=== PATIENT | female | born 1935 | race Caucasian/White ===

== ENCOUNTER 2016-10-18 16:27 | Emergency (ER) | payer MEDICARE, OTHER ==
[2016-10-18] MEDS ORDERED: SODIUM CHLORIDE 0.9% (FLUSH) 10 ML SYG IV PRN (17:37)
[2016-10-18] MEDS ORDERED: NITROGLYCERIN 0.4 MG 25 EA TAB SL ONE (17:37)
[2016-10-18] MEDS ORDERED: ONDANSETRON INJ 4 MG/2 ML VIAL IV ONE (17:37)
[2016-10-18] MEDS ORDERED: ASPIRIN TABLET 325 MG TAB PO ONE (17:37)
--- NOTE | 2016-10-18 17:37 | ED.PDOC ---
History of Present Illness - General Chief Complaint: Chest Pain/WA Stated Complaint: CHEST PAIN Time Seen by Provider: 10/18/16 17:36 Source: patient, RN notes reviewed, Vital Signs reviewed Exam Limitations: no limitations Additional Information: She stated that she had pressure type chestthenpain 3 days ago non radiating lasting for about 10-15 minutes then went away,denies diaphoresis,sob ,nausea/ vomitingthen this afternoon she had same episode while reading her books at home then came to er to get checked and stated was chest pain free on her arrival at er. - History of Present Illness Timing/Duration: other - 3 days ago and this afternoon Location: central Activities at Onset: none Prior Chest Pain/Cardiac Workup: no prior chest pain Improving Factors: nothing Worsening Factors: nothing Nitro Today/Relief: no nitro taken today, provided by ED Aspirin Treatment Today: provided by ED Associated Symptoms: denies symptoms Allergies/Adverse Reactions: Allergies NO KNOWN ALLERGY Allergy (Verified 07/24/16 10:03) Home Medications: Ambulatory Orders Amitriptyline HCl 1 ea PO PRN 07/24/16 Cetirizine HCl [Zyrtec] 1 ea PO DAILY 07/24/16 Metoprolol Succinate [Toprol XL] 50 mg PO DAILY 07/24/16 Raloxifene HCl [Raloxifene Hydrochloride] 60 mg PO BEDTIME 07/24/16 Aspirin [Aspirin Adult Low Dose] 81 mg PO DAILY #60 tab 10/18/16 Nitroglycerin 0.4 mg Tab [Nitrostat] 0 ea SL .Q5M PRN #1 bottle 10/18/16 Review of Systems - Review of Systems Constitutional: States: no symptoms reported EENTM: States: no symptoms reported Respiratory: States: no symptoms reported Cardiology: States: see HPI Gastrointestinal/Abdominal: States: no symptoms reported Genitourinary: States: no symptoms reported Musculoskeletal: States: no symptoms reported Skin: States: no symptoms reported Neurological: States: anxiety Endocrine: States: no symptoms reported Hematologic/Lymphatic: States: no symptoms reported Past Medical History (General) - Patient Medical History Hx Stroke: No Hx Congestive Heart Failure: No Hx Pacemaker: No Hx Hypertension: Yes Hx Diabetes: No Hx Cancer: No Hx Hepatitis C: No Surgical History: other - nasal polyp,d&c, - Vaccination History Hx Tetanus, Diphtheria Vaccination: No Hx Influenza Vaccination: Yes Hx Pneumococcal Vaccination: No - Social History Hx Tobacco Use: No Hx Chewing Tobacco Use: No Hx Alcohol Use: Yes - Occasional Hx Substance Use: No Hx Substance Use Treatment: No Hx Depression: No Hx Physical Abuse: No Hx Emotional Abuse: No Hx Suspected Abuse: No - Activities of Daily Living Patient Lives Alone: Yes - home - Female History Patient : No Family Medical History - Family History Grandparents Family History: Unknown Hx Family Diabetes: Yes Hx Family Cancer: Yes - gallstone Physical Exam - Physical Exam General Appearance: Alert, No apparent distress Eyes, Ears, Nose, Throat Exam: PERRL/EOMI, normal ENT inspection, TMs normal Neck: non-tender, full range of motion, supple, normal inspection Respiratory: chest non-tender, normal breath sounds, no respiratory distress, no accessory muscle use, rhonchi - mild Cardiovascular/Chest: normal peripheral pulses, regular rate, rhythm, no edema, no gallop, no JVD, no murmur Peripheral Pulses: radial,right: 2+, radial,left: 2+ Gastrointestinal/Abdominal: normal bowel sounds, non tender, soft, no organomegaly, no pulsatile mass Extremity: normal range of motion, normal inspection Neurologic: no motor/sensory deficits, alert, normal mood/affect Skin Exam: normal color, warm/dry Progress - Progress Progress: 10/18/16 19:08 patient stated no longer having chest discomfort or tightness since she was here in er;Recommended hospitaliztion but declined wants to go home. - Results/Orders Results/Orders: 10/18/16 17:37 Sodium Chloride 0.9% (Flush) [Saline Flush Syringe] 10 ml IV PRN PRN 10/18/16 17:38 IV Care:Saline Lock per Protoc QSHIFT Telemetry .ONCE EKG Assessment ONCE EKG Stat Pulse Ox Stat Pulse Oximetry Assessment DAILY 10/18/16 17:53 B-TYPE NATRIURETIC PEPTIDE/BNP Stat CARDIAC PANEL,ER Stat Laboratory Results WBC 5.6 K/mm3 (4.8-10.8) 10/18/16 17:53 RBC 4.22 M/mm3 (4.20-5.40) 10/18/16 17:53 Hgb 12.1 gm/dL (12.0-16.0) 10/18/16 17:53 Hct 36.6 % (36.0-47.0) 10/18/16 17:53 MCV 86.5 fl (81.0-99.0) 10/18/16 17:53 MCH 28.7 pg (27.0-31.0) 10/18/16 17:53 MCHC 33.2 g/dL (33.0-37.0) 10/18/16 17:53 RDW 13.0 % (11.5-14.5) 10/18/16 17:53 Plt Count 216 K/mm3 (130-400) 10/18/16 17:53 MPV 7.3 fl (7.40-10.4) L 10/18/16 17:53 Absolute Neuts (auto) 3.10 K/uL (1.8-6.8) 10/18/16 17:53 Absolute Lymphs (auto) 1.40 K/uL (1.0-3.4) 10/18/16 17:53 Absolute Monos (auto) 0.70 K/uL (0.2-0.8) 10/18/16 17:53 Absolute Eos (auto) 0.30 K/uL (0.0-0.4) 10/18/16 17:53 Absolute Basos (auto) 0.00 K/uL (0.0-0.1) 10/18/16 17:53 Neutrophils % 55.8 % (42.0-78.0) 10/18/16 17:53 Lymphocytes % 25.7 % (20.0-50.0) 10/18/16 17:53 Monocytes % 11.9 % (2.0-9.0) H 10/18/16 17:53 Eosinophils % 6.0 % (1.0-5.0) H 10/18/16 17:53 Basophils % 0.6 % (0.0-2.0) 10/18/16 17:53 PT 11.3 SECONDS (9.4-12.5) 10/18/16 17:53 INR 1.000 10/18/16 17:53 PTT (SP) 28.2 SECONDS (25.1-36.5) 10/18/16 17:53 Sodium 132 mmol/L (135-145) L 10/18/16 17:53 Potassium 4.1 mmol/L (3.6-5.0) 10/18/16 17:53 Chloride 96 mmol/L (101-111) L 10/18/16 17:53 Carbon Dioxide 28 mmol/L (21-31) 10/18/16 17:53 Anion Gap 12.1 (12-18) 10/18/16 17:53 BUN 22 mg/dL (7-18) H 10/18/16 17:53 Creatinine 0.86 mg/dL (0.6-1.3) 10/18/16 17:53 BUN/Creatinine Ratio 25.6 (10-20) H 10/18/16 17:53 Random Glucose 78 mg/dL (70-105) 10/18/16 17:53 Serum Osmolality 266.7 mOsm/L (275-295) L 10/18/16 17:53 Calcium 9.1 mg/dL (8.4-10.2) 10/18/16 17:53 Magnesium 1.9 mg/dL (1.8-2.5) 10/18/16 17:53 Creatine Kinase 80 IU/L (26-140) 10/18/16 17:53 CK-MB (CK-2) 2.4 ng/mL (0.0-4.4) 10/18/16 17:53 CK-MB (CK-2) % Not Reportable 10/18/16 17:53 Troponin I < 0.02 ng/mL (0.01-0.05) 10/18/16 17:53 - EKG/XRAY/CT EKG: Sinus, nonspecific ST T wave Chg Comments: heart rate-71 XRAY: chest - no acute abnormality Departure - Departure Clinical Impression: Chest discomfort Time of Disposition: 19:10 Disposition: Discharge to Home or Self Care Condition: Good Departure Forms: ED Discharge - Pt. Copy, Patient Portal Self Enrollment Instructions: DI for Atypical Chest Pain, DI for Chest Pain Prescriptions: Aspirin [Aspirin Adult Low Dose] 81 mg PO DAILY #60 tab Nitroglycerin 0.4 mg Tab [Nitrostat] 0 ea SL .Q5M PRN #1 bottle PRN Reason: Chest Pain Home Medications: Ambulatory Orders Amitriptyline HCl 1 ea PO PRN 07/24/16 Cetirizine HCl [Zyrtec] 1 ea PO DAILY 07/24/16 Metoprolol Succinate [Toprol XL] 50 mg PO DAILY 10/08/16 Raloxifene HCl [Raloxifene Hydrochloride] 60 mg PO BEDTIME 07/24/16 Aspirin [Aspirin Adult Low Dose] 81 mg PO DAILY #60 tab 10/18/16 Nitroglycerin 0.4 mg Tab [Nitrostat] 0 ea SL .Q5M PRN #1 bottle 10/18/16 Additional Instructions: RETURN TO ER NEEDED IF SYMPTOMS WORSENS Comments: FOLLOW UP WITH PRIMARY MD 10/19/2016 patient to call FOR APPOINTMENT
--- NOTE | 2016-10-18 18:26 | RAD ---
EXAM DESCRIPTION: XR CHEST 1 VIEW CLINICAL HISTORY: pain COMPARISON: None. FINDINGS: Cardiac silhouette is within normal limits. EKG leads project over the chest. Aorta is tortuous. There is atherosclerosis. There is no focal parenchymal or pleural disease. There is no acute osseous process visualized. IMPRESSION: No evidence of acute cardiopulmonary disease. Electronically signed by: Darwin Brown 10/18/2016 18:25
[2016-10-18 18:48] VITALS: BP 168/91; TEMP 98; O2SAT 96
== END 2016-10-18 20:01 | disposition home or self-care (01) ==
LOC: ER 16:27
DX: R07.89 Other chest pain (principal); I10 Essential (primary) hypertension; Z79.82 Long term (current) use of aspirin; Z79.899 Other long term (current) drug therapy; Z83.3 Family history of diabetes mellitus

== ENCOUNTER → 2016-12-07 | Outpatient (CLI) | payer MEDICARE, OTHER | END | disposition home or self-care (01) | LOC: GMAH 10:28 | PROVIDERS: ATTEND Family Medicine | DX: I10 Essential (primary) hypertension (principal) ==

== ENCOUNTER → 2017-11-16 | Outpatient (CLI) | payer MEDICARE, OTHER ==
--- NOTE | 2017-11-16 20:29 | MRI ---
EXAM DESCRIPTION: Shoulder,Right: MRI. CLINICAL HISTORY: PAIN IN UPPER RIGHT ARM COMPARISON: None. TECHNIQUE: Multiplanar, high-field MRI, multiple sequences, without contrast: Right shoulder. FINDINGS: Full-thickness tear of the supraspinatus tendon with medial retraction just lateral to the superior labrum and glenoid rim. Remnant of tissue attached to the anterior greater tuberosity. Remnant of the posterior fibers appears to be connected to the anterior infraspinatus tendon. Effusion and debris in the subacromial-subdeltoid bursa. Superior migration of the humeral head within 1 cm of the undersurface of the acromion process. Article erosions on the posterior tuberosity larger than the anterior tuberosity. Edema in the distal infraspinatus tendon. Minimal fluid on the undersurface of the tendon insertion. Grade 2 muscle atrophy in the supraspinatus. Less atrophy in the other rotator cuff muscles. Minimal fluid in the musculotendinous junction of the subscapularis; teres minor tendon intact. Enlargement of the AC joint capsule with widening of the joint space and effusion. Subchondral edema in the facets. Mild downsloping of the lateral acromion and type II curvature resulting in flattening of the coracoacromial arch. Coracoid ligaments are intact. Large effusion in the subcoracoid bursa with fluid extending posterior to the subscapularis. Glenohumeral joint effusion. No loose bodies. Chondromalacia in the joint space. No subchondral edema. Posterior origination of the bicipital labral anchor and the long head biceps tendon. Edema in the superior glenohumeral ligament. Fluid in the posterior aspect of the superior labrum. IMPRESSION: 1. Complete tear of most of the fibers of the supraspinatus tendon with medial retraction. Small remnant attached to the anterior tuberosity. Posterior fibers attached to the anterior infraspinatus tendon. Minimal muscle atrophy. Effusion and debris in the subacromion subdeltoid bursa. 2. Tendinopathy and partial-thickness undersurface insertion tear of the infraspinatus tendon. Tendinopathy of the subscapularis tendon. No significant muscle atrophy. 3. Moderate arthropathy of the AC joint. Morphology of the acromion process is flattening the lateral coracoacromial arch. Effusion in the subcoracoid bursa. 4. Possible tear posterior aspect of the superior labrum. Sprain versus partial tear of the superior glenohumeral ligament. Chondromalacia in the glenohumeral joint with large effusion. Electronically signed by: Elliot Bean MD 11/16/2017 8:28 PM [facility] [[email or web address]]
== END ==
LOC: MRI 11:04
PROVIDERS: ATTEND Family Medicine
DX: M75.121 Complete rotator cuff tear or rupture of right shoulder, not specified as traumatic (principal); M12.811 Other specific arthropathies, not elsewhere classified, right shoulder

== ENCOUNTER → 2017-12-19 | Outpatient (CLI) | payer OTHER | LOC: GMAH 14:50 | PROVIDERS: ATTEND Family Medicine | DX: I10 Essential (primary) hypertension (principal) ==

== ENCOUNTER → 2018-01-06 | Outpatient (CLI) | payer OTHER | LOC: GMAM 15:39 | PROVIDERS: ATTEND Family Medicine | DX: R19.7 Diarrhea, unspecified (principal) ==

== ENCOUNTER → 2018-01-09 | Outpatient (CLI) | payer OTHER ==
--- NOTE | 2018-01-09 13:50 | CT ---
EXAM DESCRIPTION: Abdomen/Pelvis w/o Contrast CLINICAL HISTORY: 82 years, Female, [place] COMPARISON: None. TECHNIQUE: CT of the abdomen and pelvis is performed according to our non contrast protocol. Coronal and sagittal reformatted images are evaluated. FINDINGS: The lung bases are clear. Heart size is normal. Liver, spleen, and pancreas are unremarkable. No right renal stones or mass. Question mild edema around the right kidney. Correlate with urinalysis. No obstructive uropathy. The left kidney is unremarkable. No left renal stones or hydronephrosis. There is no lymphadenopathy, inflammation, or free fluid observed. In the pelvis, bladder and distal ureters are negative for stones. Uterus is normal in size. No ovarian enlargement, adnexal mass or cyst. No inflammation around the cecum or terminal ileum. Appendicoliths are seen in the appendix. No periappendiceal inflammation. Sigmoid diverticulosis is seen without changes of acute diverticulitis. Degenerative changes are seen in the lower lumbar facets and SI joints. IMPRESSION: No acute upper abdominal process. No acute pelvic process. This exam was performed according to our departmental dose-optimization program, which includes automated exposure control, adjustment of the mA and/or kV according to patient size and/or use of iterative reconstruction technique. Electronically signed by: Thom Joiner MD 01/09/2018 1:48 PM CDT
== END ==
LOC: CT 09:08
PROVIDERS: ATTEND Family Medicine
DX: R19.7 Diarrhea, unspecified (principal)

== ENCOUNTER → 2019-07-20 | Outpatient (CLI) | payer OTHER | LOC: GMA MATASK 11:32 | PROVIDERS: ATTEND Family Medicine | DX: D51.9 Vitamin B12 deficiency anemia, unspecified (principal); E55.9 Vitamin D deficiency, unspecified; I10 Essential (primary) hypertension ==

== ENCOUNTER → 2020-06-20 | Outpatient (CLI) | payer OTHER | LOC: GMA MATASK 11:05 | PROVIDERS: ATTEND Family Medicine | DX: I10 Essential (primary) hypertension (principal) ==